=== PATIENT | male | born 1990 | race Hispanic/Latino ===

== ENCOUNTER 2021-02-16 06:31 | Emergency (ER) | payer BC ==
[2021-02-16 06:58] LABS: Absolute Lymphocytes (CBC) 2.9 K/uL (0.7-4.9); Basophils % 0.7 % (0-1.3); Hematocrit 42.5 % (39.6-49.0); Lymphocytes % 42.6 % (15.3-44.8); MPV 8.9 fL (7.6-11.3); RBC Red Blood Cell Count 5.11 M/uL (4.33-5.43)
[2021-02-16 07:06] LABS: Protime INR 1.07
[2021-02-16 07:26] LABS: ALT/SGPT 49 U/L (12-78); AST/SGOT 20 U/L (15-37); Albumin 3.9 g/dL (3.4-5.0); Alkaline Phosphatase 60 U/L (45-117); BUN Blood Urea Nitrogen 19 mg/dL (7-18); Bicarbonate 25 mmol/L (21-32); Bilirubin Direct < 0.1 mg/dL (0-0.2); Bilirubin Total 0.5 mg/dL (0.2-1.0); Glucose Level 158 mg/dL (74-106); Magnesium 2.2 mg/dL (1.8-2.4); Potassium 3.4 mmol/L (3.5-5.1); Protein, Total 7.6 g/dL (6.4-8.2); Sodium Level 139 mmol/L (136-145); Troponin (Emerg Dept Use Only) < 0.02 ng/mL (0.0-0.045)
[2021-02-16 07:27] LABS: NT PRO-BNP < 5 pg/mL (<125)
--- NOTE | 2021-02-16 08:04 | EDPHYS ---
Physician Documentation [facility] Name: Christian Vidal Age: 30 yrs Sex: Male : 1990 Arrival Date: 02/16/2021 Time: 06:32 Bed 5 Private MD: ED Physician Kp Chopra HPI: 02/16 08:20 This 30 yrs old Male presents to ER via Ambulatory with complaints of Chest kdr Pain. 08:20 The patient or guardian reports chest pain that is located primarily in the anterior kdr chest wall, left. The pain does not radiate. Associated signs and symptoms: The patient has no apparent associated signs or symptoms. The chest pain is described as aching, dull, a heaviness. Duration: The patient or guardian reports multiple episodes, that are intermittent, that wax and wane, with no pattern. Severity of pain: At its worst the pain was mild moderate just prior to arrival, in the emergency department the pain has improved moderately. The patient has experienced a previous episode, last month. The patient has not recently seen a physician. Historical: - Allergies: 06:43 No Known Allergies; jm8 - Home Meds: 06:43 None [Active]; jm8 - PMHx: 06:43 None; jm8 - PSHx: 06:43 None; jm8 - Immunization history:: Adult Immunizations up to date. - Social history:: Smoking status: Reported history of juuling and/or vaping. ROS: 08:20 Constitutional: Negative for fever, chills, and weight loss, Eyes: Negative for injury, kdr pain, redness, and discharge, ENT: Negative for injury, pain, and discharge, Neck: Negative for injury, pain, and swelling, Respiratory: Negative for shortness of breath, cough, wheezing, and pleuritic chest pain, Abdomen/GI: Negative for abdominal pain, nausea, vomiting, diarrhea, and constipation, Back: Negative for injury and pain, : Negative for injury, bleeding, discharge, and swelling, MS/Extremity: Negative for injury and deformity, Skin: Negative for injury, rash, and discoloration, Neuro: Negative for headache, weakness, numbness, tingling, and seizure activity. Psych: Negative for depression, anxiety, suicide ideation, homicidal ideation, and hallucinations, Allergy/Immunology: Negative for hives, rash, and allergies, Endocrine: Negative for neck swelling, polydipsia, polyuria, polyphagia, and marked weight changes, Hematologic/Lymphatic: Negative for swollen nodes, abnormal bleeding, and unusual bruising. 08:20 Cardiovascular: Positive for chest pain, Negative for edema, orthopnea, palpitations, paroxysmal nocturnal dyspnea, acute changes. Exam: 08:20 Constitutional: This is a well developed, well nourished patient who is awake, alert, kdr and in no acute distress. Head/Face: Normocephalic, atraumatic. Eyes: Pupils equal round and reactive to light, extra-ocular motions intact. Lids and lashes normal. Conjunctiva and sclera are non-icteric and not injected. Cornea within normal limits. Periorbital areas with no swelling, redness, or edema. Neck: Trachea midline, no thyromegaly or masses palpated, and no cervical lymphadenopathy. Supple, full range of motion without nuchal rigidity, or vertebral point tenderness. No Meningismus. Chest/axilla: Normal chest wall appearance and motion. Nontender with no deformity. No lesions are appreciated. Cardiovascular: Regular rate and rhythm with a normal S1 and S2. No gallops, murmurs, or rubs. Normal PMI, no JVD. No pulse deficits. Respiratory: Lungs have equal breath sounds bilaterally, clear to auscultation and percussion. No rales, rhonchi or wheezes noted. No increased work of breathing, no retractions or nasal flaring. Abdomen/GI: Soft, non-tender, with normal bowel sounds. No distension or tympany. No guarding or rebound. No evidence of tenderness throughout. Back: No spinal tenderness. No costovertebral tenderness. Full range of motion. Skin: Warm, dry with normal turgor. Normal color with no rashes, no lesions, and no evidence of cellulitis. MS/ Extremity: Pulses equal, no cyanosis. Neurovascular intact. Full, normal range of motion. Neuro: Awake and alert, GCS 15, oriented to person, place, time, and situation. Cranial nerves II-XII grossly intact. Motor strength 5/5 in all extremities. Sensory grossly intact. Cerebellar exam normal. Normal gait. Psych: Awake, alert, with orientation to person, place and time. Behavior, mood, and affect are within normal limits. 08:20 ECG was reviewed by the Attending Physician. kdr Vital Signs: 06:42 BP 147 / 90; Pulse 84; Resp 16; Temp 97.8; Pulse Ox 99% ; Weight 81.65 kg; Height 5 ft. jm8 7 in. (170.18 cm); 07:45 BP 130 / 71; Pulse 70; Resp 13; Pulse Ox 98% on R/A; Pain 2/10; tr6 08:11 BP 124 / 82; Pulse 72; Resp 14; Pulse Ox 98% ; sv 06:42 Body Mass Index 28.19 (81.65 kg, 170.18 cm) jm8 MDM: 08:03 Patient medically screened. kdr 08:20 HEART Score: ECG: Normal (0), Age: < or = 45 years (0), Risk Factors: 1 or 2 risk kdr factors (1), Troponin: < or = 1 x Normal Limit (0), Total Score = 1. Data reviewed: vital signs, nurses notes, lab test result(s), EKG, radiologic studies. Counseling: I had a detailed discussion with the patient and/or guardian regarding: the historical points, exam findings, and any diagnostic results supporting the discharge/admit diagnosis, lab results, radiology results, the need for outpatient follow up. 02/16 06:43 Order name: Basic Metabolic Panel; Complete Time: 07:52 02/16 06:43 Order name: CBC with Diff; Complete Time: 07:52 02/16 06:43 Order name: LFT's; Complete Time: 07:52 02/16 06:43 Order name: Magnesium; Complete Time: 07:52 02/16 06:43 Order name: NT PRO-BNP; Complete Time: 07:52 02/16 06:43 Order name: PT-INR; Complete Time: 07:52 02/16 06:43 Order name: Troponin (emerg Dept Use Only); Complete Time: 07:52 02/16 06:43 Order name: XRAY Chest (1 view) 02/16 06:43 Order name: EKG; Complete Time: 06:44 02/16 06:43 Order name: Cardiac monitoring; Complete Time: 06:47 02/16 06:43 Order name: EKG - Nurse/Tech; Complete Time: 06:47 02/16 06:43 Order name: IV Saline Lock; Complete Time: 06:50 02/16 06:43 Order name: Labs collected and sent; Complete Time: 06:50 02/16 06:43 Order name: O2 Per Protocol; Complete Time: 06:47 ea 02/16 06:43 Order name: O2 Sat Monitoring; Complete Time: 06:47 EC:20 Rate is 73 beats/min. Rhythm is regular, Normal Sinus Rhythm with No ectopy. QRS Hardy kdr is Normal. IN interval is normal. QRS interval is normal. QT interval is normal. Clinical impression: Normal ECG. Administered Medications: : Drug: Ketorolac 15 mg Route: IVP; Site: right antecubital; tr6 08:12 Follow up: Response: No adverse reaction sv Disposition Summary: 02/16/21 08:03 Discharge Ordered Location: Home kdr Problem: new kdr Symptoms: have improved kdr Condition: Stable kdr Diagnosis - Chest pain, unspecified kdr Followup: kdr - With: Private Physician - When: 2 - 3 days - Reason: If symptoms return, Further diagnostic work-up, Recheck today's complaints, Continuance of care, Re-evaluation by your physician Discharge Instructions: - Discharge Summary Sheet kdr - Chest Wall Pain, [id number] kdr - Nonspecific Chest Pain, Adult, [id number] kdr - Hyperglycemia, [id number] kdr Forms: - Medication Reconciliation Form kdr - Thank You Letter kdr Prescriptions: - Ibuprofen 600 mg Oral Tablet - take 1 tablet by ORAL route every 6 hours As needed take with food; 30 tablet; kdr Refills: 0, Product Selection Permitted Signatures: Dispatcher [employer] Kp Herbert MD MD kdr Antunez, Elena, RN RN ea Malcaba, Joseph RN RN [email or web address] Lora Rosales, RN JOSE E [email or web address] Amisha Bahena RN
--- NOTE | 2021-02-16 08:04 | ER ---
Nurse's Notes [facility] Name: Christian Vidal Age: 30 yrs Sex: Male : 1990 Arrival Date: 02/16/2021 Time: 06:32 Bed 5 Private MD: Diagnosis: Chest pain, unspecified Presentation: 02/16 06:42 Chief complaint: Patient states: left side chest for 3-4 days. Coronavirus screen: 8 Client denies travel out of the [place] in the last 14 days. Ebola Screen: Patient negative for fever greater than or equal to 101.5 degrees Fahrenheit, and additional compatible Ebola Virus Disease symptoms Patient denies exposure to infectious person. Patient denies travel to an Ebola-affected area in the 21 days before illness onset. Initial Sepsis Screen: Does the patient meet any 2 criteria? No. Patient's initial sepsis screen is negative. Does the patient have a suspected source of infection? No. Patient's initial sepsis screen is negative. Risk Assessment: Do you want to hurt yourself or someone else? Patient reports no desire to harm self or others. Onset of symptoms was February 13, 2021. 06:42 Method Of Arrival: Ambulatory [facility] 06:42 Acuity: VIK 2 [facility] Historical: - Allergies: 06:43 No Known Allergies; [facility] - Home Meds: 06:43 None [Active]; jm8 - PMHx: 06:43 None; 8 - PSHx: 06:43 None; 8 - Immunization history:: Adult Immunizations up to date. - Social history:: Smoking status: Reported history of juuling and/or vaping. Screenin:44 Abuse screen: Denies threats or abuse. Denies injuries from another. Nutritional 8 screening: No deficits noted. Tuberculosis screening: No symptoms or risk factors identified. Fall Risk None identified. Assessment: 06:44 General: Appears in no apparent distress. comfortable, Behavior is calm, cooperative, jm8 appropriate for age. Pain: Complains of pain in chest Pain does not radiate. Pain currently is 3 out of 10 on a pain scale. Quality of pain is described as heavy, pressure, Pain began 3 days ago. Neuro: No deficits noted. Level of Consciousness is awake, alert, obeys commands, Oriented to person, place, time. Cardiovascular: Reports chest pain, Capillary refill < 3 seconds Patient's skin is warm and dry. Rhythm is sinus rhythm. Respiratory: No deficits noted. Airway is patent Trachea midline Respiratory effort is even, unlabored, Respiratory pattern is regular, symmetrical. GI: No deficits noted. No signs and/or symptoms were reported involving the gastrointestinal system. : No deficits noted. No signs and/or symptoms were reported regarding the genitourinary system. EENT: No deficits noted. No signs and/or symptoms were reported regarding the EENT system. Derm: No deficits noted. No signs and/or symptoms reported regarding the dermatologic system. Musculoskeletal: No deficits noted. No signs and/or symptoms reported regarding the musculoskeletal system. 07:53 Reassessment: No changes from previously documented assessment. Patient is alert, tr6 oriented x 3, equal unlabored respirations, skin warm/dry/pink. Patient states feeling better. pt states that his pain has improved slightly since being in the ED. pt denies need for assistance at this time. VSS. will continue to monitor. 07:59 Reassessment: MD Chopra at bedside. tr6 08:11 Reassessment: Patient appears in no apparent distress at this time. No changes from sv previously documented assessment. Patient and/or family updated on plan of care and expected duration. Pain level reassessed. Patient is alert, oriented x 3, equal unlabored respirations, skin warm/dry/pink. Vital Signs: 06:42 BP 147 / 90; Pulse 84; Resp 16; Temp 97.8; Pulse Ox 99% ; Weight 81.65 kg; Height 5 ft. jm8 7 in. (170.18 cm); 07:45 BP 130 / 71; Pulse 70; Resp 13; Pulse Ox 98% on R/A; Pain 2/10; tr6 08:11 BP 124 / 82; Pulse 72; Resp 14; Pulse Ox 98% ; sv 06:42 Body Mass Index 28.19 (81.65 kg, 170.18 cm) jm8 ED Course: 06:32 Patient arrived in ED. bp1 06:43 Triage completed. jm8 06:44 Arm band placed on right wrist. jm8 06:47 Patient has correct armband on for positive identification. surveillance monitor on. Pulse jm8 ox on. NIBP on. 06:47 Patient maintains SpO2 saturation greater than 95% on room air. jm8 06:49 Inserted saline lock: 20 gauge in right forearm, using aseptic technique. Blood ea collected. 07:01 XRAY Chest (1 view) In Process Unspecified. EDMS 07:06 Kp Chopra MD is Attending Physician. kdr 07:23 Amisha Bahena, RN is Primary Nurse. sv 07:54 No provider procedures requiring assistance completed. tr6 08:11 IV discontinued, intact, bleeding controlled, No redness/swelling at site. Pressure sv dressing applied. Administered Medications: 07:59 Drug: Ketorolac 15 mg Route: IVP; Site: right antecubital; tr6 08:12 Follow up: Response: No adverse reaction sv Outcome: 08:03 Discharge ordered by MD. kdr 08:11 Discharged to home ambulatory. sv 08:11 Condition: stable 08:11 Discharge instructions given to patient, Instructed on discharge instructions, follow up and referral plans. medication usage, Demonstrated understanding of instructions, follow-up care, medications, Prescriptions given X 1. 08:12 Patient left the ED. sv Signatures: Dispatcher [employer] EDWV Amisha Bahena, RN RN sv Kp Chopra MD MD [facility] Doris Esparza RN RN Kelin Glover Joseph, RN RN [facility] Lora Rosales, RN RN tr6
[2021-02-16] MEDS ORDERED: KETOROLAC 30 MG/ML INJ ONE (08:18)
[2021-02-16 08:21] VITALS: BP 124/82; TEMP 97.8; O2SAT 98
--- NOTE | 2021-02-16 08:58 | RAD REPORT ---
EXAM DESCRIPTION: RAD - Chest Single View - 02/16/2021 7:01 am CLINICAL HISTORY: PAIN Chest pain. COMPARISON: No comparisons FINDINGS: Portable technique limits examination quality. The lungs are grossly clear. The heart is normal in size. No displaced fractures. IMPRESSION: No acute intrathoracic process suspected.
--- NOTE | 2021-02-17 10:28 | EKG ---
Test Date: 2021-02-16 Test Time: 06:40:31 Curb Builder: MEASUREMENT RESULTS: Intervals: Rate: 73 CO: 148 QRSD: 92 QT: 372 QTc: 409 [place]: P: 88 CO: 148 QRS: 51 T: 73 INTERPRETIVE STATEMENTS: Normal sinus rhythm Normal ECG No previous ECG available for comparison Electronically Signed On 02-17-21 10:25:48 CDT by Benjamin Zamudio
== END 2021-02-16 08:12 | disposition home or self-care (01) ==
LOC: ER 06:31
DX: R07.9 Chest pain, unspecified (principal)
CPT/HCPCS: 36415; 71045; 80048; 80076; 83735; 83880; 84484; 85025; 85610; 93005; 96374; 99285

== ENCOUNTER 2021-03-04 16:18 | Emergency (ER) | payer BC ==
--- NOTE | 2021-03-04 17:15 | EDPHYS ---
Physician Documentation [facility] Name: Christian Vidal Age: 30 yrs Sex: Male : 1990 Arrival Date: 03/04/2021 Time: 16:21 Bed 19 Private MD: ED Physician Adam Jensen HPI: 03/04 17:06 This 30 yrs old Male presents to ER via Ambulatory with complaints of Skin jmm Sore(s). 17:06 the patient presents with a swollen area of the right jaw and forehead. Onset: The jmm symptoms/episode began/occurred gradually, 1 week(s) ago. Possible cause(s): unknown. Associated signs and symptoms: Pertinent negatives: fever. Modifying factors: the symptoms are alleviated by nothing, the symptoms are aggravated by nothing. This is a 30 year old male with no chronic medical conditions that presents to the ED with complaints of skin sores beginning 1 week ago to the chest. patient states he noticed swelling beneath his chin and his forehead. Denies fever or drainage. . Historical: - Allergies: 16:32 No Known Allergies; ll1 - PMHx: 16:32 pre HTN; ll1 - PSHx: 16:32 None; ll1 - Immunization history:: Flu vaccine is up to date. - Social history:: Smoking status: Reported history of juuling and/or vaping. Patient denies any tobacco usage or history of. ROS: 17:06 Constitutional: Negative for fever, chills, and weight loss, Cardiovascular: Negative jmm for chest pain, palpitations, and edema, Respiratory: Negative for shortness of breath, cough, wheezing, and pleuritic chest pain. 17:06 Skin: Positive for swelling. 17:06 All other systems are negative. Exam: 17:06 Constitutional: This is a well developed, well nourished patient who is awake, alert, jmm and in no acute distress. 17:06 Eyes: EOMI, no conjunctival erythema appreciated ENT: Moist Mucus Membranes 17:06 Chest/axilla: Normal chest wall appearance and motion. Cardiovascular: Regular rate and rhythm. No edema appreciated Respiratory: Normal respirations, no respiratory distress appreciated Abdomen/GI: Non distended, soft Back: Normal ROM Skin: General appearance color normal MS/ Extremity: Moves all extremities, no obvious deformities appreciated, no edema noted to the lower extremities Neuro: Awake and alert, normal gait Psych: Behavior is normal, Mood is normal, Patient is cooperative and pleasant 17:06 Head/face: papular lesions noted to the forehead. 17:06 Neck: nonfluctuant abscess noted to the right chin, no drainage appreciated. Vital Signs: 16:31 Weight 83.46 kg; Height 5 ft. 7 in. (170.18 cm); Pain 5/10; ll1 16:33 BP 124 / 98; Pulse 83; Resp 16; Temp 98.5; Pulse Ox 99% ; ll1 16:31 Body Mass Index 28.82 (83.46 kg, 170.18 cm) ll1 MDM: 17:06 Patient medically screened. [facility] 17:06 Data reviewed: vital signs, nurses notes. Counseling: I had a detailed discussion with yonathan the patient and/or guardian regarding: the historical points, exam findings, and any diagnostic results supporting the discharge/admit diagnosis, the need for outpatient follow up, to return to the emergency department if symptoms worsen or persist or if there are any questions or concerns that arise at home. ED course: Patient is alert and non toxic in appearance in the ED. Advised to follow up with pcp or otherwise given strict return precautions. Patient understood and agrees with the plan of care. . Administered Medications: No medications were administered Disposition: 17:35 Co-signature as Attending Physician, Adam Jensen MD. rn Disposition Summary: 03/04/21 17:15 Discharge Ordered Location: Home [facility] Condition: Stable [facility] Diagnosis - Cutaneous Abscess of the Face [facility] Followup: [facility] - With: Private Physician - When: 2 - 3 days - Reason: Recheck today's complaints, Continuance of care, Re-evaluation by your physician Discharge Instructions: - Discharge Summary Sheet [facility] - Skin Abscess, [id number] [facility] Forms: - Medication Reconciliation Form [facility] - Thank You Letter [facility] - Antibiotic Education [facility] - Prescription Opioid Use [facility] Prescriptions: - Doxycycline Hyclate 100 mg Oral Tablet - take 1 tablet by ORAL route every 12 hours; 20 tablet; Refills: 0, Product [facility] Selection Permitted Signatures: Sandeep King PA PA jmm Nieto, Roman, MD MD rn Lewis, Lynsay, RN RN ll1
--- NOTE | 2021-03-04 17:15 | ER ---
Nurse's Notes [facility] Name: Christian Vidal Age: 30 yrs Sex: Male : 1990 Arrival Date: 03/04/2021 Time: 16:21 Bed 19 Private MD: Diagnosis: Cutaneous Abscess of the Face Presentation: 03/04 16:31 Chief complaint: Patient states: Abscess to Right side of jaw line in [place] area for 1 ll1 week getting slowly worse. Small abscess to L cheek also. No fever. Coronavirus screen: Client denies travel out of the [place] in the last 14 days. At this time, the client does not indicate any symptoms associated with coronavirus-19. Ebola Screen: Patient denies travel to an Ebola-affected area in the 21 days before illness onset. Initial Sepsis Screen: Does the patient meet any 2 criteria? No. Patient's initial sepsis screen is negative. Does the patient have a suspected source of infection? Yes: Skin breakdown/wound. Risk Assessment: Do you want to hurt yourself or someone else? Patient reports no desire to harm self or others. Onset of symptoms was February 25, 2021. 16:31 Method Of Arrival: Ambulatory ll1 16:31 Acuity: VIK 4 ll1 Historical: - Allergies: 16:32 No Known Allergies; ll1 - PMHx: 16:32 pre HTN; ll1 - PSHx: 16:32 None; ll1 - Immunization history:: Flu vaccine is up to date. - Social history:: Smoking status: Reported history of juuling and/or vaping. Patient denies any tobacco usage or history of. Screenin:54 Abuse screen: Denies threats or abuse. Denies injuries from another. Nutritional ss screening: No deficits noted. Tuberculosis screening: Never had TB. Fall Risk None identified. Assessment: 16:54 General: Appears in no apparent distress. comfortable, Behavior is calm, cooperative, ss Denies fever, feeling ill, fatigue, chills. Pain: Complains of pain in forehead, chin and right jaw Pain currently is 5 out of 10 on a pain scale. Pain began 3 days Is continuous. Neuro: Level of Consciousness is awake, alert, obeys commands, Oriented to person, place, time, situation. Cardiovascular: Capillary refill < 3 seconds is brisk in bilateral fingers. Respiratory: Airway is patent Respiratory effort is even, unlabored, Respiratory pattern is regular, symmetrical. GI: No signs and/or symptoms were reported involving the gastrointestinal system. : No signs and/or symptoms were reported regarding the genitourinary system. EENT: Oral mucosa is moist. Derm: Skin is intact, is healthy with good turgor, Skin is pink, warm \T\ dry. normal. Musculoskeletal: Circulation, motion, and sensation intact. Range of motion: intact in all extremities, Swelling absent. Vital Signs: 16:31 Weight 83.46 kg; Height 5 ft. 7 in. (170.18 cm); Pain 5/10; ll1 16:33 BP 124 / 98; Pulse 83; Resp 16; Temp 98.5; Pulse Ox 99% ; ll1 16:31 Body Mass Index 28.82 (83.46 kg, 170.18 cm) ll1 ED Course: 16:21 Patient arrived in ED. mr 16:32 Triage completed. 1 16:33 Arm band placed on. 1 16:45 Sandeep King PA is PHCP. [facility] 16:45 Adam Jensen MD is Attending Physician. [facility] 16:54 Patient has correct armband on for positive identification. Bed in low position. Call ss light in reach. 17:21 Chantale Ramirez, JOSE E is Primary Nurse. 17:21 No provider procedures requiring assistance completed. Patient did not have IV access ss during this emergency room visit. Administered Medications: No medications were administered Outcome: 17:15 Discharge ordered by . [facility] 17:21 Discharged to home ambulatory, with family. 17:21 Condition: good 17:21 Discharge instructions given to patient, family, Instructed on discharge instructions, follow up and referral plans. medication usage, Demonstrated understanding of instructions, follow-up care, medications, Prescriptions given X 1. 17:22 Patient left the ED. ss Signatures: Sandeep King PA PA jmm Dionisio Radha mr Chantale Ramirez, Tano Rizvi RN, RN RN 1
[2021-03-04 17:32] VITALS: BP 124/98; TEMP 98.5; O2SAT 99
== END 2021-03-04 17:22 | disposition home or self-care (01) ==
LOC: ER 16:18
DX: L02.01 Cutaneous abscess of face (principal)
CPT/HCPCS: 99282